=== PATIENT | female | born 1960 ===

== ENCOUNTER 2023-05-22 17:10 | Emergency (ER) | payer MEDICAID ==
[~2023-05-22] VITALS: Ht 165.1 cm; Wt 113.6 kg
[2023-05-22] MEDS ORDERED: nitroGLYCERIN 0.2mg/hour patch TD ONE (18:20)
[2023-05-22] MEDS ORDERED: LORazepam 2 mg/ml vial IV ONE (18:20)
[2023-05-22] MEDS ORDERED: aspirin 81mg tab.chew PO ONE (18:20)
[2023-05-22] MEDS ORDERED: normal saline 1000ML IV soln IVB ONE (18:20)
[2023-05-22] MEDS ORDERED: pantoprazole 40 MG vial IV ONE (18:20)
[2023-05-22 19:03] LABS: BASOPHILS % (AUTO) 0.5 % (0-1); EOSINOPHILS # (AUTO) 0.1 X10'3 (0-0.9); HEMATOCRIT 43.9 % (35.0-45.0); HEMOGLOBIN 14.7 g/dl (12.0-16.0); LYMPHOCYTES # (AUTO) 0.9 X10'3 (1.1-4.8); LYMPHOCYTES % (AUTO) 12.7 % (21-51); MEAN CORPUSCULAR HEMOGLOBIN 29.5 PG (27.0-31.0); MEAN CORPUSCULAR HGB CONC 33.4 g/dL (33.0-36.5); MEAN CORPUSCULAR VOLUME 88.4 FL (78-98); MEAN PLATELET VOLUME 7.2 FL (7.4-10.4); MONOCYTES # (AUTO) 0.4 X10'3 (0-0.9); MONOCYTES % (AUTO) 6.2 % (2-12); NEUTROPHILS # (AUTO) 5.6 X10'3 (1.8-7.7); NEUTROPHILS % (AUTO) 78.6 % (42-75); PLATELET COUNT 272 X10'3 (140-440); RED BLOOD COUNT 4.97 X10'6 (4.20-5.60); RED CELL DISTRIBUTION WIDTH 16.8 % (11.5-14.5); WHITE BLOOD COUNT 7.2 X10'3 (4.5-11.0)
[2023-05-22 19:05] VITALS: BP 138/93; PULSE 53; TEMP 98.3; O2SAT 99
[2023-05-22 19:13] LABS: APTT 28 SECONDS (22-32); PROTHROMBIN TIME 10.3 SECONDS (9.0-12.0)
[2023-05-22 19:14] VITALS: RESP 18
[2023-05-22 19:17] LABS: ALANINE AMINOTRANSFERASE 34 U/L (12-78); ALBUMIN 3.6 G/DL (3.4-5.0); ALKALINE PHOSPHATASE 86 IU/L (46-116); ANION GAP 6 (8-16); ASPARTATE AMINO TRANSFERASE 35 U/L (10-37); BILIRUBIN,TOTAL 0.3 MG/DL (0.1-1.0); BLOOD UREA NITROGEN 19 MG/DL (7-18); BUN/CREATININE RATIO 32.8 (10.0-20.0); CALCIUM 9.4 MG/DL (8.5-10.1); CHLORIDE 104 MMOL/L (99-107); CREATININE 0.58 MG/DL (0.40-0.90); GLUCOSE 85 MG/DL (70-104); POTASSIUM 4.2 MMOL/L (3.5-5.1); SODIUM 139 MMOL/L (135-145); TOTAL CARBON DIOXIDE 28.8 MMOL/L (24-32); TOTAL PROTEIN 7.1 G/DL (6.4-8.2); eCRCL 93 ML/MIN; eGFR > 90 ML/MIN
[2023-05-22] MEDS ORDERED: pantoprazole 40 MG/NS 100ML add-vantage BAG IV ONE (19:20)
[2023-05-22] MEDS ORDERED: HYDROmorphone 1 mg/ml syringe IV ONE (19:20)
[2023-05-22] MEDS ORDERED: metoclopramide 5 mg/ml inj IV ONE (19:20)
[2023-05-22 19:24] LABS: PHOSPHORUS 3.2 MG/DL (2.3-4.5); PRO BRAIN NATRIURETIC PEPTIDE 76 PG/ML (0-125)
[2023-05-22 19:25] LABS: LIPASE 23 U/L (16-77)
[2023-05-22 19:27] LABS: ETHANOL < 10 MG/DL (<10)
--- NOTE | 2023-05-22 19:29 | NUR ---
PT IS REFUSING IV. PT EDUCATED ON THE NECESSITY OF MEDICATIONS. MD NOTIFIED.
[2023-05-22] MEDS ORDERED: metoprolol tartrate 25mg tablet PO SCH (20:00)
== END 2023-05-22 20:26 | disposition left against medical advice (07) ==
LOC: ER 17:10
DX: R07.9 Chest pain, unspecified (principal); F31.9 Bipolar disorder, unspecified; I10 Essential (primary) hypertension
CPT/HCPCS: 36415; 71045; 80053; 80320; 83690; 83735; 83880; 84100; 84484; 85025; 85610; 85730; 93005; 99285